=== PATIENT | male | born 1970 | race Caucasian/White ===

== ENCOUNTER 2019-04-23 19:56 | Emergency (ER) | payer OTHER ==
[2019-04-23] MEDS: ONDANSETRON (ODT) 4 MG TAB ODT (20:08)
[2019-04-23] MEDS: ACETAMINOPHEN 325 MG TAB PO (20:09)
== END 2019-04-23 22:26 | disposition home or self-care (01) ==
LOC: E/R 19:56
DX: S06.0X1A Concussion with loss of consciousness of 30 minutes or less, initial encounter (principal); R40.2142 Coma scale, eyes open, spontaneous, at arrival to emergency department; R40.2362 Coma scale, best motor response, obeys commands, at arrival to emergency department; R40.2252 Coma scale, best verbal response, oriented, at arrival to emergency department; F17.210 Nicotine dependence, cigarettes, uncomplicated; Y04.8XXA Assault by other bodily force, initial encounter
CPT/HCPCS: 70450; 72125; 99284-25